=== PATIENT | female | born 2000 | race Caucasian/White ===

== ENCOUNTER 2024-06-18 19:28 | Emergency (ER) | payer OTHER ==
[~2024-06-18] VITALS: Ht 170.2 cm; Wt 81.8 kg
[2024-06-18 20:05] VITALS: BP 134/94; TEMP 98.3
[2024-06-18 20:30] VITALS: PULSE 97
[2024-06-18] MEDS ORDERED: Ibuprofen 600 MG TAB PO ONE (20:30)
== END 2024-06-18 20:30 | disposition home or self-care (01) ==
LOC: COL.ER 19:28
DX: S61.212A Laceration without foreign body of right middle finger without damage to nail, initial encounter (principal); W26.0XXA Contact with knife, initial encounter; Y92.009 Unspecified place in unspecified non-institutional (private) residence as the place of occurrence of the external cause